=== PATIENT | female | born 1970 | race Caucasian/White ===

== ENCOUNTER 2022-05-06 13:26 | Emergency (ER) | payer OTHER ==
[~2022-05-06] VITALS: Ht 157.5 cm; Wt 104.3 kg
[~2022-05-06 13:26] MED LIST: ACET325; AMOX1XR PO; DIPATR PO; IBUP200; NEBI5 PO; ONDA8ODT MM; PANT20 PO; RXHYDACE PO; TRIHYD253B PO
[2022-05-06] MEDS ORDERED: AMOCLA875 PO ×2 (15:21→16:32)
== END 2022-05-06 15:25 | disposition home or self-care (01) ==
LOC: ER 13:26
DX: S61.238A Puncture wound without foreign body of other finger without damage to nail, initial encounter (principal); W55.01XA Bitten by cat, initial encounter; Z23 Encounter for immunization
CPT/HCPCS: 90471; 90714; 99282-25